=== PATIENT | female | born 1990 | race Caucasian/White ===

== ENCOUNTER 2016-11-07 13:36 | Outpatient (CLI) | payer OTHER | END 2016-11-07 13:37 | disposition home or self-care (01) | DX: N92.5 Other specified irregular menstruation (principal) ==

== ENCOUNTER 2018-05-06 17:48 | Outpatient (CLI) | payer OTHER | END 2018-05-06 17:49 | disposition home or self-care (01) | LOC: LAB.R 17:48 | PROVIDERS: ATTEND Physician Assistant Medical | DX: N39.0 Urinary tract infection, site not specified (principal) | CPT/HCPCS: 87086; 87181 ==

== ENCOUNTER 2019-01-15 10:10 | Outpatient (CLI) | payer OTHER ==
--- NOTE | 2019-01-15 13:07 | MRI Report ---
Reason: STRAIN OF MUSCLE,FASCIA AND TENDON OF LOWER BACK,I Procedure Date: 01/15/2019 Accession Number: [id number] / [id number] Procedure: MRI - Lumbar Spine W/O CPT Code: FULL RESULT: EXAM: MRI LUMBAR SPINE WITHOUT CONTRAST EXAM DATE: 01/15/2019 11:12 AM. CLINICAL HISTORY: Back pain. Muscle strain. COMPARISON: None. TECHNIQUE: Multiplanar, multisequence T1-weighted and fluid-sensitive sequences of the lumbar spine from T12 to S1 without contrast. Other: None. FINDINGS: Spinal Canal: The conus terminates at L1-L2. The conus medullaris and cauda equina are unremarkable. Alignment: No scoliosis or spondylolisthesis. Bone Marrow: Five [id number] lumbar vertebral bodies are assumed. No gross fractures or bone lesions. No bone marrow replacement. Disk Levels/Facets: T12-L1: Mild central stenosis and thecal sac indentation from left posterior paracentral disk extrusion. No conus displacement. Patent foramina. No significant disk space narrowing. L1-L2: Minimal disk space dehydration and narrowing. Shallow circumferential bulge. Minimal central stenosis. Patent foramina. No focal nerve root compression. L2-L3: Unremarkable. L3-L4: Unremarkable. L4-L5: Mild disk space dehydration and narrowing. Shallow circumferential disk bulge. Additional more focal central to left posterior paracentral disk protrusion with annular fissure. Minimal ventral thecal sac indentation. No nerve root compression. Central stenosis is minimal. The neural foramina are patent. Unremarkable appearing facets. L5-S1: Mild disk space narrowing and dehydration posteriorly. Mild to moderate right lateral recess stenosis from right posterior paracentral disk extrusion. Possible small annular fissure. Mild mass effect on the right S1 nerve. Patent central canal and foramina. Musculature: Normal. No edema or fatty atrophy. Other: None. IMPRESSION: 1. Mild stenosis associated with left posterior paracentral disk herniation at T12-L1. 2. Mild central stenosis from disk bulge at L1-L2, no focal neural impingement. 3. Unremarkable findings at L2-L3 and L3-L4. 4. Left of midline posterior disk protrusion with annular fissure at the L4-L5 level. Stenosis is minimal, no definite nerve root impingement. 5. Right lateral recess stenosis at L5-S1 where there is mild mass effect on the right S1 nerve by a right side posterior disk herniation. Comment: The following findings are so common in adults without low back pain that while we report their presence, they must be interpreted with caution and in the context of the clinical situation. (Reference Katianak et al, Spine 2001) Prevalence of findings in patients without low back pain: Disk degeneration (any evidence): 92% Disk desiccation/T2 signal loss: 83% Disk height loss: 56% Disk bulge: 64% Disk protrusion: 32% Annular tear/high intensity zone: 38% RADIA
== END 2019-01-15 10:11 | disposition home or self-care (01) ==
LOC: DI 10:10
PROVIDERS: ATTEND Physician Assistant
DX: M51.26 Other intervertebral disc displacement, lumbar region (principal); M51.25 Other intervertebral disc displacement, thoracolumbar region; M51.36 Other intervertebral disc degeneration, lumbar region; M48.061 Spinal stenosis, lumbar region without neurogenic claudication; M51.37 Other intervertebral disc degeneration, lumbosacral region
CPT/HCPCS: 72148

== ENCOUNTER 2019-06-07 08:11 | Outpatient (CLI) | payer OTHER ==
[2019-06-07 10:43] LABS: THYROID STIMULATING HORMONE 1.01 uIU/mL (0.34-5.60)
[2019-06-07 10:49] LABS: FERRITIN 38.9 ng/mL (11.0-306.8)
== END 2019-06-07 08:12 | disposition home or self-care (01) ==
LOC: LAB 08:11
PROVIDERS: ATTEND Registered Nurse
DX: R63.5 Abnormal weight gain (principal)
CPT/HCPCS: 36415; 81599; 82306; 82728; 82951; 83525; 84443